=== PATIENT | male | born 1975 | race Caucasian/White ===

== ENCOUNTER 2016-12-13 08:22 | Emergency (ER) | payer BC ==
[2016-12-13 08:28] VITALS: BP 135/84
--- NOTE | 2016-12-13 08:51 | UC ---
Dental HPI - HPI Summary HPI Summary: Pt presents with tooth #16 pain for 2 days. Has not been eating much due to pain. Says that his wisdom teeth never came in as a child, but has recently started coming in crooked. Does not have a dentist. - History of Current Complaint Chief Complaint: UCDentalProblem Stated Complaint: DENTAL PAIN Time Seen by Provider: 12/13/16 08:37 Hx Obtained From: Patient Onset/Duration: Gradual Onset Severity: Severe Pain Intensity: 8 Pain Scale Used: 0-10 Numeric Aggravating Factor(s): Chewing Alleviating Factor(s): Nothing - Allergies/Home Medications Allergies/Adverse Reactions: Allergies Allergy/AdvReac Type Severity Reaction Status Date / Time Penicillins Allergy Rash And Verified 12/13/16 08:28 Itching PMH/Surg Hx/FS Hx/Imm Hx Previously Healthy: Yes - Surgical History Surgical History: Yes Surgery Procedure, Year, and Place: Shoulder surgery - Family History Known Family History: Positive: Unknown - Social History Occupation: Employed Full-time Lives: With Family Alcohol Use: None Substance Use Type: Marijuana Smoking Status (MU): Never Smoked Tobacco Review of Systems Constitutional: Negative Skin: Negative ENT: Dental Pain Respiratory: Negative Cardiovascular: Negative Gastrointestinal: Negative Is Patient Immunocompromised?: No All Other Systems Reviewed And Are Negative: Yes Physical Exam Triage Information Reviewed: Yes Appearance: Pain Distress Vital Signs: Initial Vital Signs Temp 97.2 F 12/13/16 08:23 Pulse 60 12/13/16 08:23 Resp 18 12/13/16 08:23 BP 135/84 12/13/16 08:23 Pulse Ox 100 12/13/16 08:23 Vital Signs Reviewed: Yes ENT: Positive: Hearing grossly normal, Pharynx normal, TMs normal. Negative: Pharyngeal erythema, Nasal congestion, Nasal drainage, TM bulging, TM dull, TM red, Tonsillar swelling, Tonsillar exudate, Trismus, Muffled/hoarse voice Dental: Positive: Percussion Tenderness @ - tooth 16, Gross Decay/Caries @ - tooth 16, Other: - Erythema surrounding gum of tooth 16. No discharge expressed when palpated. Negative: Dental Fracture @, Cervical Lymphadenopathy, Bleeding Neck: Positive: Supple, Nontender, No Lymphadenopathy Respiratory: Positive: Chest non-tender, Lungs clear, Normal breath sounds, No respiratory distress Cardiovascular: Positive: RRR, No Murmur Psychological: Positive: Age Appropriate Behavior Dental Complaint Course/Dx - Course Course Of Treatment: Pt was given phone number for a local dentist. Tx with clindamycin for 10 days, advised to take a probiotic with antibiotic. [place] for pain - 5 days MDD 3. - Differential Dx/Diagnosis Differential Diagnosis/Dx: Dental Abscess, Dental Caries, Gingivitis Provider Diagnoses: Dental Abscess Discharge - Discharge Plan Condition: Stable Disposition: HOME Prescriptions: Clindamycin Cap(NF) [Clindamycin Cap 300 mg Cap(NF)] 300 mg PO Q6H #40 cap HYDROcodone/ACETAMIN 5-325 MG* [[place] 5-325 TAB*] 1 tab PO Q8H PRN #15 tab MDD 3 PRN Reason: Pain Patient Education Materials: Dental Abscess (ED) Referrals: Ana Maria Ferris MD [Primary Care Provider] - Additional Instructions: Clindamycin 300mg four times a day for 10 days. You may take ibuprofen OTC as needed for pain. If you develop a fever, chills, new or worsening symptoms - please contact our office or go to ED.
== END 2016-12-13 09:16 | disposition home or self-care (01) ==
LOC: UCEAST 08:22
DX: K04.7 Periapical abscess without sinus (principal); F12.90 Cannabis use, unspecified, uncomplicated
CPT/HCPCS: 99212; G0463

== ENCOUNTER → 2017-07-20 06:10 | Day surgery (SDC) | payer BC ==
--- NOTE | 2017-07-07 04:42 | HP ---
CC: Dr. Ana Maria Ferris * ADMISSION HISTORY AND PHYSICAL: DATE OF ADMISSION: 07/20/17 ATTENDING SURGEON: Giorgi Art MD * (DICTATED BY MONI WADDELL) CHIEF COMPLAINT: Anal fissure; internal hemorrhoids. HISTORY OF PRESENT ILLNESS: This is a generally healthy 42-year-old male who for the past year or so has experienced pain following bowel movements. He states that initially and for the first 6 months or so, pain was very intense, often requiring him to lie down following defecation to relieve the pain. With interventions as noted below, he has had some improvement with less intense pain. He states that the pain occurs after the bowel movement and is characterized as a sharp, burning pain, lasting sometimes up to 3 to 4 hours. He has also had some occasional blood noted after a bowel movement, typically just on the toilet paper and not on a regular basis. He did undergo colonoscopy in 2005, which was a normal study showing hemorrhoids only. The patient was seen by Dr. Art initially in September,, at which time a digital exam confirmed a point of maximum tenderness in the posterior 11 to 12 o 'clock position as well as a fissure evident in the posterior location by anoscopy. He had been using mineral oil up to that point. Dr. Art prescribed Rectiv (nitroglycerin) ointment, which he has been using regularly since that time again with some improvement. However, the patient still has ongoing symptoms and he was reexamined by Dr. Art on 06/04/17. Exam at that time continued to show significant tenderness in the posterior aspect of the anal canal. In addition, anoscopy revealed internal hemorrhoids in the anterior and posterior locations. There were no external lesions or hemorrhoids. There is a positive family history of colorectal cancer in the patient's grandfather. Dr. Art discussed with him the indications for surgery, the risks, benefits, and alternatives, and the patient is aware of the expected perioperative course. He would like to proceed as scheduled with examination under anesthesia; Botox injection; rubber band ligation of internal hemorrhoids. PAST MEDICAL HISTORY: Asthma (relatively inactive and generally related to environmental allergies). He has a history of hyperlipidemia but treats this with diet alone. He also uses [id number] antihistamines for allergic rhinitis. PAST SURGICAL HISTORY: Right shoulder arthroscopy (he did experience some postoperative nausea and vomiting), vasectomy, and LASIK surgery. Otherwise, uneventful. CURRENT MEDICATIONS: 1. Rectiv 0.4% ointment b.i.d. sparingly as directed. 2. Albuterol MDI two puffs p.r.n. (generally uses in the fall). 3. Loratadine 10 mg once daily p.r.n. (does not use daily). DRUG ALLERGIES: PENICILLIN (unknown childhood reaction; he does tolerate amoxicillin). 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 We discussed this recommendation. FAMILY HISTORY: Negative for anesthesia problems, bleeding, or clotting disorders. SOCIAL HISTORY: The patient is . He has 2 children. He is employed as a school counselor. He denies use of tobacco. He drinks 1 to 2 drinks per week and uses marijuana on occasion, but not daily or weekly. No other recreational drug use reported. REVIEW OF SYSTEMS: General: No recent constitutional symptoms or acute illnesses, other than described in the HPI. Eyes, Ears, Nose, and Throat: No problems reported. Cardiovascular: No chest pain, palpitations, history of hypertension. Respiratory: No recent exacerbations of his asthma. No shortness of breath or chronic cough. GI: No problems reported. See also above per HPI. : No problems reported. Endocrine: No diabetes or thyroid dysfunction. All other systems were reviewed and are otherwise negative. PHYSICAL EXAMINATION GENERAL: Well-nourished, well-developed male, in no acute distress. VITAL SIGNS: Height 68 inches, weight 170 pounds, temperature 97.1, blood pressure 118/80, pulse 60. HEENT: Pupils equal, round, and reactive. EOMs intact. No conjunctival pallor. Oropharynx: Teeth in good repair. No intraoral lesions. NECK: No lymphadenopathy, thyromegaly or masses. LUNGS: Clear to auscultation. No wheezes. HEART: Regular rate and rhythm. No murmur noted. ABDOMEN: Soft, nontender to palpation, no palpable masses or organomegaly. EXTREMITIES: No edema. GENITALIA: Not done. RECTAL: Not done. Per Dr. Art as noted above, not repeated today. BACK: No spinous process or CVA tenderness. NEUROLOGIC: Grossly intact. SKIN: Warm and dry. No suspicious rashes or lesions noted. IMPRESSION: Anal fissure and internal hemorrhoids. PLAN: Examination under anesthesia, Botox injection for anal fissure, and rubber band ligation of internal hemorrhoids. MONI WADDELL [id number]/[facility] #: [id number] [facility] [place] [facility]
[~2017-07-20 06:10] MED LIST: Acetaminophen TAB* 325 MG PO PRN; Buffered Lidocaine 0.9% SYRIN* 5 ML/SYR SYRINGE INTRADERM ONE; Chloroprocaine 2%* 20 ML VIAL ONE; Ketorolac INJ* 30 MG/ML 1 ML VIAL IV PRN; Ketorolac INJ* 30 MG/ML 1 ML VIAL ONE; Lidocain 1% EPI 1:100,000 * 30 ML MDV ONE; Midazolam* 1 MG/ML 5 ML VIAL (5 MG) ONE; Naloxone* 0.4 MG/ML 1 ML VIAL IV PRN; Onabotulinimtoxina 100 UNITS* VIAL ONE; fentaNYL* 50 MCG/ML 2 ML VIAL (100 MCG VIAL) IV PRN; fentaNYL* 50 MCG/ML 2 ML VIAL (100 MCG VIAL) ONE; oxyCODONE TAB* 5 MG TAB PO PRN
--- NOTE | 2017-07-20 08:21 | OP ---
Operative Report - Blank - Operative Report Date of Operation: 07/20/17 Note: Pre-op Dx: Internal Hemorrhoids; Anal Fissure Post-op Dx: Same Procedure: Rubber Band Ligation of Internal Hemorrhoids and Botox Injection of Anal Fissure Surgeon: Rubens Assist: DORENE Patel Anesthesia: Spinal IV Fluids: 600mL RL EBL: <10mL Drains: None Specimen: None Complications: None Findings: Dictated
[2017-07-20 09:51] VITALS: BP 123/84
--- NOTE | 2017-07-21 11:48 | OP ---
DATE OF OPERATION: 07/20/17 - [facility] DATE OF : 77 SURGEON: Giorgi Art MD SCHOOL PSYCHOLOGY PROFESSOR: None. ANESTHESIA: Spinal. PRE-OP DIAGNOSIS: Internal hemorrhoids and anal fissure. POST-OP DIAGNOSIS: Internal hemorrhoids and anal fissure. OPERATIVE PROCEDURE: Examination under anesthesia, banding internal hemorrhoids and Botox injection of the anal sphincter. ESTIMATED BLOOD LOSS: Minimal. SPECIMEN: None. DRAIN: None. COMPLICATIONS: None. DESCRIPTION OF PROCEDURE: The patient was brought to the operating room and was administered a spinal anesthetic by Dr. Phipps. He was positioned lithotomy and time-out was performed after he was prepped and draped. Examination performed revealed prominent hemorrhoidal tissues at the left lateral and right posterior locations. There was a posterior anal fissure noted. The anal retractors were placed and hemorrhoidal banding was performed at the left lateral and right posterior positions. A 100 units of botulinum toxin were reconstituted in 2 cc of normal saline and after identifying the location of the fissure and confirming the position of the internal anal sphincter, the sphincter muscle was injected with 1 cc of aliquot at 5 o'clock and 7 o'clock. The anal canal was then packed with Xeroform, gauze roll soaked in lidocaine 1% with epinephrine. He tolerated the procedure well and was transferred to the recovery room in stable condition. [id number]/[facility] #: [id number] MTDD
== END | disposition home or self-care (01) ==
LOC: OR 06:10
PROVIDERS: ATTEND Surgery
DX: K64.8 Other hemorrhoids (principal); K60.2 Anal fissure, unspecified; J45.909 Unspecified asthma, uncomplicated
CPT/HCPCS: J0585; J1885; J2250; J2400; J3010